=== PATIENT | female | born 1965 | race Caucasian/White ===

== ENCOUNTER 2018-08-11 05:58 | Day surgery (SDC) | payer OTHER ==
[~2018-08-11] VITALS: Ht 165.1 cm; Wt 84.2 kg
[~2018-08-11 05:58] MED LIST: AMLO5TAB4 PO; PANT40TA4 PO
[2018-08-11 07:13] VITALS: Ht 165.1 cm; Wt 84.2 kg
[2018-08-11 07:32] VITALS: BP 130/76; PULSE 63; RESP 22
--- NOTE | 2018-08-11 07:53 | PREAC ---
Date/Time of Note Date/Time of Note DATE: 08/11/18 TIME: 07:51 Anesthesia Eval and Record Evaluation Time Pre-Procedure Interview DATE: 08/11/18 TIME: 07:51 Age 53 Sex female NPO: 8 hrs Preoperative diagnosis Abdominal Pain, CBH Planned procedure EGD, Colonoscopy Past Medical History Past Medical History: Includes Cardio: HTN GI: Obesity Surgery & Anesthesia Issues No known issue Meds Anticoagulation: No Beta Dalia within 24 hr: No Reason Beta Dalia not given: Pt. not on B-Dalia Reported Medications Amlodipine Besylate* (Norvasc*) 5 Mg Tablet, 5 MG PO BID, TAB 07/31/15 Discontinued Scripts Pantoprazole* (Pantoprazole*) 40 Mg Tabec, 40 MG PO DAILY@06 for 30 Days Prov:TALAT GONSALSE 08/04/15 Meds reviewed: Yes Allergies Coded Allergies: No Known Allergy (Unverified , 08/11/18) Allergies Reviewed: Yes Labs/Studies Labs Reviewed: Reviewed by anesthesiologist test: N/A Studies: ECG (n/a), CXR (n/a) Pre-procedure Exam Last vitals Vital Signs Date Temp Pulse Resp B/P (MAP) Pulse Ox O2 O2 Flow FiO2 Time Delivery Rate 08/11/18 97.6 63 22 130/76 98 Room Air 07:32 (94) Airway: Adequate mouth opening, Adequate thyromental dist Mallampati: Mallampati II Teeth: Normal Lung: Normal Heart: Normal ASA Physical Status ASA physical status: 2 Emergency: None Planned Anesthetic General/MAC: MAC Planned Pain Management Parenteral pain med Pre-operative Attestations Prior to commencing anesthesia and surgery, the patient was re-evaluated, there was verification of: *The patient's identity *The results of appropriate recent lab work and preoperative vital signs *The above evaluation not changing prior to induction *Anesthetic plan, risk benefits, alternative and complications discussed with patient/family; questions answered; patient/family understands, accepts and wishes to proceed. RONI CRUZ MD Aug 11, 2018 07:53
[2018-08-11] MEDS ORDERED: EPHEDrine 25 MG/5 ML SYG ONE (08:39)
[2018-08-11] MEDS ORDERED: PROPOFOL 60 ML ONE (08:39)
--- NOTE | 2018-08-11 08:43 | PAC ---
Date/Time of Note Date/Time of Note DATE: 08/11/18 TIME: 08:43 Post-Anesthesia Notes Post-Anesthesia Note Last documented vital signs Vital Signs Date Temp Pulse Resp B/P (MAP) Pulse Ox O2 O2 Flow FiO2 Time Delivery Rate 08/11/18 97.6 63 22 130/76 98 Room Air 08:32 (94) Activity: WNL Respiratory function: WNL Cardiovascular function: WNL Mental status: Baseline Pain reasonably controlled: Yes Hydration appropriate: Yes Nausea/Vomiting absent: Yes RONI CRUZ MD Aug 11, 2018 08:43
[2018-08-11 09:05] VITALS: BP 101/59; PULSE 59; RESP 20
== END 2018-08-11 11:19 | disposition home or self-care (01) ==
LOC: GIL 05:58
PROVIDERS: ATTEND Internal Medicine Gastroenterology
DX: R19.4 Change in bowel habit (principal); K29.30 Chronic superficial gastritis without bleeding; D12.5 Benign neoplasm of sigmoid colon; K44.9 Diaphragmatic hernia without obstruction or gangrene; K21.9 Gastro-esophageal reflux disease without esophagitis; K64.8 Other hemorrhoids; K57.30 Diverticulosis of large intestine without perforation or abscess without bleeding; I10 Essential (primary) hypertension
CPT/HCPCS: 88305; 88312